=== PATIENT | male | born 1985 | race Caucasian/White ===

== ENCOUNTER 2024-05-20 10:58 | Emergency (ER) | payer MEDICAID, SELFPAY ==
--- NOTE | ~2024-05-20 | XR_ITS ---
EXAMINATION: XR TIBIA AND FIBULA, RIGHT CLINICAL INFORMATION: Pain after fall COMPARISON: None available. TECHNIQUE: AP and lateral views of the right tibia and fibula were obtained. FINDINGS: The bones and soft tissues are normal. No fracture. No osseous lesions. XR/XR tibia fibula RT 2V IMPRESSION: Normal right tibia and fibula. Electronically signed by: Jose Whitley MD 05/20/2024 12:53 PM EST
--- NOTE | ~2024-05-20 | XR_ITS ---
EXAMINATION: XR ANKLE, RIGHT CLINICAL INFORMATION: Pain COMPARISON: None available. TECHNIQUE: AP, lateral, and mortise views of the right ankle. FINDINGS: Ankle mortise is well-maintained. There is small osseous fragment adjacent to the medial malleolus associated with soft tissue swelling but described on images from 2007, direct visualization is not available and most likely remote fracture of indeterminate age. Mild soft tissue swelling seen laterally as well. XR/XR ankle RT 2V IMPRESSION: No acute fracture seen. Remote fracture at the medial malleolus, unfused and soft tissue edema Electronically signed by: Jose Whitley MD 05/20/2024 12:55 PM EST
--- NOTE | ~2024-05-20 | US_ITS ---
EXAMINATION: US TRIPLEX LOWER EXTREMITY, RIGHT CLINICAL INFORMATION: Right leg pain and swelling COMPARISON: None available. TECHNIQUE: Color-flow triplex imaging with spectral analysis and compression Doppler were performed on the right lower extremity. FINDINGS: Respiratory variation, normal compression and augmented flow are noted throughout the right lower extremity. The visualized common femoral vein, superficial femoral vein, profunda femoral vein, popliteal vein and midcalf peroneal and posterior tibial venous segments show no evidence of deep venous thrombosis. There is a 3.7 x 1.6 x 1.4 cm right popliteal fossa cyst. Prominent right inguinal lymph nodes are evident, presumably reactive. US/US venous duplex LE RT IMPRESSION: 1. No evidence of deep vein thrombosis in the right femoral popliteal system. 2. Right popliteal fossa 3.7 cm Saucedo's cyst. Electronically signed by: Mj Saldivar MD 05/20/2024 01:38 PM [facility]
--- NOTE | ~2024-05-20 | XR_ITS ---
EXAMINATION: XR KNEE, RIGHT CLINICAL INFORMATION: Pain and swelling COMPARISON: None available. TECHNIQUE: Four views of the right knee. FINDINGS: There is no fracture seen. There is mild narrowing of medial compartment of left knee joint with marginal spurring. There is no joint effusion XR/XR knee RT 2V IMPRESSION: Large joint effusion and mild degenerative changes Electronically signed by: Jose Whitley MD 05/20/2024 12:57 PM EST
[2024-05-20 11:24] VITALS: BP 162/97; PULSE 89; RESP 16; TEMP 36.5; O2SAT 100; BMI 31.3
--- NOTE | 2024-05-20 11:30 | ED.GENADULT ---
HPI - General Adult General Chief complaint: Extremity Problem Stated complaint: pain in r leg and ankle Time Seen by Provider: 05/20/24 12:50 Source: patient, RN notes reviewed and old records reviewed Mode of arrival: ambulatory History of Present Illness ED Provider: Jazmin Almonte PA-C HPI narrative: 38-year-old male with no significant past medical history presenting to the ED complaining of acute on chronicright knee and ankle pain /swelling x 1 year worsening over the past week. Admits experiences intermittent joint swelling / pain, believes he has not gout, however denies official diagnosis. Reports exquisite pain. Denies known injury, trauma, fall, erythema, numbness / tingling, SOB Related Data Previous Rx's ?Medication ?Instructions ?Recorded acetaminophen 500 mg tablet 500 mg PO Q6H PRN fever or pain 05/20/24 (Tylenol Extra Strength) #14 tabs naproxen 500 mg tablet 500 mg PO BID PRN pain 10 days #20 05/20/24 tabs prednisone 20 mg tablet 40 mg (2 x 20 mg) PO DAILY 5 days 05/20/24 #10 tabs Allergies Allergy/AdvReac Type Severity Reaction Status Date / Time No Known Allergies Allergy Unverified 05/20/24 11:26 Review of Systems Review of Systems: Yes all other systems are reviewed and are negative Constitutional: Constitutional: Reports as per [facility] Past Medical History Attestation statement: The following information was validated with the patient. Source: old records reviewed Social History Social History Advance Directives: No Advance Directives Information Provided: Yes Physical Exam ED Vital Signs: Vital Signs - 24 hr 05/20/24 11:24 05/20/24 14:41 05/20/24 15:27 Temperature 97.7 F 97.5 F 97.5 F Pulse Rate 89 81 81 Respiratory Rate 16 15 15 Blood Pressure 162/97 H 166/92 H 166/92 H Pulse Oximetry 100 100 100 Oxygen Delivery Method Room Air Room Air Room Air BMI result Body Mass Index 31.3 Const General: cooperative, healthy appearing and no acute distress Orientation/consciousness: patient oriented x3 Limitations: no limitations HENMT Head: Yes normal to inspection and Yes atraumatic Ears: hearing grossly normal bilaterally General nose exam: Normal external nose present Face and sinus: Yes normal facial exam Eyes General: appearance normal, both eyes and all related structures EOM: EOMs intact bilaterally Neck Neck: Yes normal visual inspection and Yes no meningeal signs Resp Effort & Inspection: normal respiratory effort and no respiratory distress Cardio Rate: regular rate Skin Rashes: no rashes Wounds: no wounds Neuro General: patient oriented x3, tone normal and no meningeal signs Cranial nerves: Yes CN's II-XII intact bilaterally Gait exam (Neuro): Normal gait present Extrem Other: right knee with noted swelling. No erythema. Diffusely tender to palpation. Limited ROM secondary to pain. Right ankle with appreciable swelling. Tender to palpation. Neurovascularly intact distally. No erythema /warmth no crepitus Course Course Course Narrative: RME: 38-year-old male presents ED for new onset of right knee right leg right ankle swelling with pain. Patient states he has gout although no history of gout. Exam positive for right knee leg ankle swelling. Will do labs, ultrasound, x-rays. -1426-- no leukocytosis. Uric acid level mildly elevated to 7.7 US venous duplex LE RT IMPRESSION: 1. No evidence of deep vein thrombosis in the right femoral popliteal system. 2. Right popliteal fossa 3.7 cm Saucedo's cyst. XR ankle RT 2V IMPRESSION: No acute fracture seen. Remote fracture at the medial malleolus, unfused and soft tissue edema XR tibia fibula RT 2V IMPRESSION: Normal right tibia and fibula. XR knee RT 2V IMPRESSION: Large joint effusion and mild degenerative changes > Doug wrap applied to knee. Aircast applied to ankle. Recommended PCP follow-up. Discharge patient home with p.o. prednisone. Results discussed with patient including worrisome signs and symptoms and strict return precautions, and when to return to the emergency department. They verbalized understanding and feel safe for discharge at this time. Procedures Orthopedic Splinting/Casting Injury #1: Side: right Lower Extremity Injury Location: knee and ankle Lower Extremity Immobilizer: AirCast and Doug wrap Medical Decision Making Medical Decision Making MDM Narrative: 38-year-old male with no significant past medical history presenting to the ED complaining of acute on chronicright knee and ankle pain /swelling x 1 year worsening over the past week. on exam vital signs stable, NAD, nontoxic appearing, physical exam as noted above. Concern for fractures vs sprain vs arthritic flare vs ? gout. No evidence of septic joint / arthritis. Rule out DVT. Low suspicion for PE plan: Labs, x-ray, ultrasound ordered in triage Please refer to course for remaining clinical decision making, interpretation of labs/imaging results, and discussions with consultants and/or family members. Differential Diagnosis Differential Diagnoses: The differential diagnosis associated with the presentation includes As above Admission/Observation Consideration of admission/observation: Escalation of care including admission/observation considered Lab Data MDM Lab Attestation statement: I reviewed the patient's lab results. 05/20/24 11:36 05/20/24 11:36 Labs: Lab Results 05/20/24 Range/Units 11:36 WBC 8.0 (4.8-10.8) X10*3/uL RBC 4.11 L (4.60-5.80) X10*6/uL Hgb 11.5 L (14.0-18.0) g/dl Hct 36.0 L (42.0-52.0) % MCV 87.6 (80.0-98.0) fL MCH 28.0 (27.0-33.0) pg MCHC 31.9 (31.0-36.0) g/dl RDW 14.7 (11.0-16.0) % Plt Count 431 H (160-400) X10*3/uL MPV 8.3 L (9.4-12.4) fL Immature Gran % (Auto) 0.2 (0.0-0.4) % Neut % (Auto) 71.0 (45-73) % Lymph % (Auto) 21.3 (20-40) % Nelson % (Auto) 6.6 (2-11) % Eos % (Auto) 0.7 (0-4) % Baso % (Auto) 0.2 (0-2) % Lymph # (Auto) 1.7 (1.2-4.9) X10*3/uL Nelson # (Auto) 0.5 (0.1-1.2) X10*3/uL Eos # (Auto) 0.1 (0.0-0.4) X10*3/uL Baso # (Auto) 0.0 (0.0-0.2) X10*3/uL Abs Immat Gran (auto) 0.02 (0.00-0.03) X10*3/uL Absolute Neuts (auto) 5.7 (2.0-8.3) x10*3/uL Absolute Nucleated RBC 0.000 (0.0-0.012) X10*3/uL Nucleated RBC % (auto) 0.0 (0.0-0.2) /100WBC PT 12.4 (10.9-12.4) SEC INR 1.1 (0.9-1.1) APTT 35.7 (26.0-36.8) SEC Sodium 141 (135-145) mmol/L Potassium 4.2 (3.3-5.1) mmol/L Chloride 103 (96-108) mmol/L Carbon Dioxide 29 (22-29) mmol/L Anion Gap 13 (12-20) BUN 10 (9-16) mg/dL Creatinine 1.01 (0.5-1.4) mg/dL Estim Creat Clear Calc 108.6 Estimated GFR > 60 Random Glucose 95 (60-115) mg/dL Uric Acid 7.7 H (3.4-7.0) mg/dL Calcium 10.3 H (8.4-10.2) mg/dL Total Bilirubin 0.4 (0.0-1.0) mg/dL AST 19 (5-37) U/L ALT 18 (0-40) U/L Alkaline Phosphatase 97 (39-117) U/L Total Protein 8.2 H (6.5-8.0) g/dL Albumin 4.0 (3.5-5.0) g/dL Independent Interpretation I performed an independent interpretation of an: Plain X-Ray and Ultrasound Radiology Impression Discussion of test interpretation with radiology: I have reviewed the radiologist's reading. External Record Review External record reviewed: Inpatient record, Office record, Outpatient record, Prior outpatient labs, Prior outpatient radiology, Primary care record and Outside ED record Tests considered The following testing was considered but not selected: As above Prescription Management I considered prescription management with: Pain Medication Chronic Conditions Patient?s care impacted by: Other Social Determinants Patient?s care significantly limited by Social Determinants of Health including: Low income, Problems related to primary support group and Other Social Determinant of Health Discharge Plan Discharge Clinical Impression: Joint swelling, Elevated uric acid in blood Patient Disposition: Home, Self-Care Instructions: Low Purine Diet (ED) Additional Instructions: your x-ray shows a large joint effusion. It also shows an old fracture to your right ankle wear Doug wrap for compression and stability Wear Aircast for compression and comfort Prednisone as a steroid which will help with swelling/ pain in addition naproxen as an anti-inflammatory/ pain medicine, take with food Please follow-up with your doctor as well as Rheumatology and Orthopedics If symptoms persist or worsen, pain becomes unbearable, swelling worsens, area becomes red, you have fever return to the ED immediately Prescriptions: New prednisone 20 mg tablet 40 mg PO DAILY 5 Days Qty: 10 0RF acetaminophen [Tylenol Extra Strength] 500 mg tablet 500 mg PO Q6H PRN (Reason: fever or pain) Qty: 14 0RF naproxen 500 mg tablet 500 mg PO BID PRN (Reason: pain) 10 Days Qty: 20 0RF Referrals: [facility] [place]Provider Group] [facility] [Provider Group] Interventions: ED Discharge Assessment Last Done: 05/20/24 15:27 Discharge Date/Time: 05/20/24 15:28 Print Language: Kiswahili
[2024-05-20 11:41] LABS: MANUAL DIFF FLAG NO
[2024-05-20 11:42] LABS: Basophils Percent Auto 0.2 % (0-2); Eosinophils Absolute Auto 0.1 X10*3/uL (0.0-0.4); Eosinophils Percent Auto 0.7 % (0-4); Hemoglobin 11.5 g/dl (14.0-18.0); Imm Gran Abs Auto 0.02 X10*3/uL (0.00-0.03); Imm Gran Pct Auto 0.2 % (0.0-0.4); Lymphocytes Absolute Auto 1.7 X10*3/uL (1.2-4.9); Lymphocytes Percent Auto 21.3 % (20-40); Mean Corpuscular HGB Conc 31.9 g/dl (31.0-36.0); Mean Corpuscular Volume 87.6 fL (80.0-98.0); Mean Platelet Volume 8.3 fL (9.4-12.4); Monocytes Absolute Auto 0.5 X10*3/uL (0.1-1.2); Monocytes Percent Auto 6.6 % (2-11); Neutrophils Absolute Auto 5.7 x10*3/uL (2.0-8.3); Platelet Count 431 X10*3/uL (160-400); Red Blood Count 4.11 X10*6/uL (4.60-5.80); Red Cell Distribution Width 14.7 % (11.0-16.0)
[2024-05-20 11:47] LABS: INTERNATIONAL NORM RATIO 1.1 (0.9-1.1); Prothrombin Time 12.4 SEC (10.9-12.4)
[2024-05-20 11:50] LABS: Partial Thromboplastin Time 35.7 SEC (26.0-36.8)
[2024-05-20 12:11] LABS: Alanine Aminotransferase 18 U/L (0-40); Alkaline Phosphatase 97 U/L (39-117); Anion Gap 13 (12-20); Aspartate Amino Transferase 19 U/L (5-37); Bilirubin Total 0.4 mg/dL (0.0-1.0); Blood Urea Nitrogen 10 mg/dL (9-16); Calcium 10.3 mg/dL (8.4-10.2); Carbon Dioxide 29 mmol/L (22-29); Chloride 103 mmol/L (96-108); Creatinine Clr Calc Pharmacy 108.6; Estimated Glomerular Filt Rate > 60; Glucose Random 95 mg/dL (60-115); Potassium 4.2 mmol/L (3.3-5.1); Sodium 141 mmol/L (135-145); Total Protein 8.2 g/dL (6.5-8.0); Uric Acid 7.7 mg/dL (3.4-7.0)
[2024-05-20 14:41] VITALS: BP 166/92; PULSE 81; RESP 15; TEMP 36.4; O2SAT 100
[2024-05-20 15:27] VITALS: BP 166/92; PULSE 81; RESP 15; TEMP 36.4; O2SAT 100
== END 2024-05-20 15:28 | disposition home or self-care (01) ==
PROVIDERS: Physician Assistant; Emergency Provider Student in an Organized Health Care Education/Training Program
DX: M79.89 Other specified soft tissue disorders (principal); M25.561 Pain in right knee; E79.0 Hyperuricemia without signs of inflammatory arthritis and tophaceous disease
CPT/HCPCS: 36415; 73560; 73590; 73600; 80053; 84550; 85025; 85610; 85730; 93971; 99282; 99284

== ENCOUNTER 2025-06-08 13:41 | Emergency (ER) | payer MEDICAID, SELFPAY ==
[2025-06-08 13:58] VITALS: BP 149/102; PULSE 96; RESP 16; TEMP 36.6; O2SAT 98; BMI 27.4
--- NOTE | 2025-06-08 14:01 | ED_ITS ---
HPI - General Adult General Chief complaint: Extremity Injury, Lower Stated complaint: Knee Leg Pain Time Seen by Provider: 06/08/25 14:04 Source: patient Mode of arrival: wheelchair Limitations: no limitations History of Present Illness ED Provider: Charmaine Stevenson PA-C HPI narrative: Patient is a 39 year old assigned male at with a history of gout presenting to the emergency department today with right hand, right knee, and right great toe pain. Patient states that over the last few days he has had right hand, right knee, and right great toe pain that feels like gout to him. Patient states that he had a similar episode this time last year and the medication he was given then, worked. Patient denies any other complaints at this time. Onset (ago): day(s) Relieving factors: none Associated symptoms: denies other symptoms Treatments prior to arrival: none Related Data Previous Rx's ?Medication ?Instructions ?Recorded acetaminophen 500 mg tablet 500 mg PO Q6H PRN fever or pain 05/20/24 (Tylenol Extra Strength) #14 tabs naproxen 500 mg tablet 500 mg PO BID PRN pain 10 da ys #20 05/20/24 tabs prednisone 20 mg tablet 40 mg (2 x 20 mg) PO DAILY 5 days 05/20/24 #10 tabs naproxen 500 mg tablet 500 mg PO BID 7 days #14 tab s 06/08/25 prednisone 20 mg tablet 40 mg (2 x 20 mg) PO DAILY C OPD 06/08/25 exacerbation 5 days #10 tabs Allergies Allergy/AdvReac Type Severity Reaction Status Date / Time No Known Allergies Allergy Verified 06/08/25 13:59 Review of Systems Constitutional: Constitutional: Reports as per HPI Eyes: Eyes: Reports as per HPI ENT: Reports as per HPI Cardiovascular: Cardiovascular: Reports as per HPI Respiratory: Respiratory: Reports as per HPI Gastrointestinal: Gastrointestinal: Reports as per HPI Genitourinary: Genitourinary: Reports as per HPI Musculoskeletal: Musculoskeletal: Reports as per HPI Integumentary/Breasts: Skin/Breast: Reports as per HPI Neurologic: Reports as per HPI Psychiatric: Psychiatric: Reports as per HPI Endocrine: Endocrine: Reports as per HPI Hematologic/Lymphatic: Hematologic/Lymphatic: Reports as per HPI Allergic/Immunologic: Allergic/Immunologic: Reports as per HPI [facility] Past Medical History Attestation statement: The following information was validated with the patient. Source: old records reviewed and nursing notes reviewed Social History Social History Advance Directives: No Advance Directives Information Provided: Yes Physical Exam ED Vital Signs: Vital Signs - 24 hr 06/08/25 13:58 Temperature 97.9 F Pulse Rate 96 Respiratory Rate 16 Blood Pressure 149/102 H Pulse Oximetry 98 Oxygen Delivery Method Room Air BMI result Body Mass Index 27.4 Const General: cooperative, no acute distress, alert and awake Nutritional Appearance: well nourished Orientation/consciousness: patient oriented x3 HENMT Head: Yes normal to inspection and Yes atraumatic Ears: hearing grossly normal bilaterally and external ears normal General nose exam: Normal external nose present, no nasal discharge noted and no epistaxis Face and sinus: Yes normal facial exam, No abrasion and No laceration Mouth: Normal oral and palatal mucosa present, no drooling and no muffled voice Eyes General: appearance normal, both eyes and all related structures Periorbital: periorbital findings normal Eyelids: Yes eyelids normal Conjunctivae: conjunctivae normal Pupils: Equal, round and reactive pupils present EOM: EOMs intact bilaterally Neck Neck: Yes normal visual inspection and Yes full ROM Resp Effort & Inspection: normal respiratory effort and able to speak in complete sentences Neuro General: patient oriented x3, moves all extremities and CN's II-XI intact bilaterally Cranial nerves: Yes Equal, round and reactive pupils present Cognition (Neuro): normal cognition Extrem General: Yes normal to inspection, Yes full ROM and Yes capillary refill normal Psych Appearance: grossly normal Mental Status: mental status grossly normal Affect: normal affect Attitude: cooperative Thought process: Normal thought process present Thought content: Normal thought content present Insight: Good insight present (Psych) Medical Decision Making Medical Decision Making MDM Narrative: Patient is a 39 year old assigned male at with a history of gout presenting to the emergency department today with right hand, right knee, and right great toe pain. Patient's physical exam was as noted in the physical exam portion of this note. Patient's examination is consistent with gout and showed no evidence of infection / cellulitis. I explained my physical exam findings to the patient. I answered all questions asked by the patient. I stressed the importance of the patient taking his medication as directed (either prescribed or as the over the counter packaging recommends). I stressed the importance of the patient following up with his primary care provider. I stressed the importance of the patient returning to the emergency department immediately if his symptoms were to worsen or if he were to develop any dizziness, shortness of breath, difficulty breathing, chest pain, blurry vision, loss of vision, nausea, vomiting, abdominal pain, fever, chills, back pain, or any other complaints. Patient verbalized agreement and understanding with this treatment plan and discharge. Differential Diagnosis Differential Diagnoses: The differential diagnosis associated with the presentation includes Gout flare Gout attack Admission/Observation Consideration of admission/observation: Escalation of care including admission/observation considered Patient would have been admitted to the hospital had his clinical presentation warranted hospital admission. Tests considered The following testing was considered but not selected: I considered obtaining an x-ray of the right hand, right knee, and right foot however - the patient has not sustained any trauma and has no physical exam findings warranting imaging. Prescription Management I considered prescription management with: Pain Medication (patient prescribed pain medication for his gout flare) Discharge Plan Discharge Clinical Impression: Gout Patient Disposition: Home, Self-Care Instructions: Low Purine Diet (ED), Gout (ED) Additional Instructions: Take your medication as prescribed. IF you are prescribed home medications and/or you are taking over the counter medications at home - it is very important you continue to do so as prescribed / directed unless told otherwise by a healthcare provider. Follow up with your primary care provider. Do your best to stay well hydrated and rest. Return to the emergency department immediately if your symptoms worsen or if you develop any numbness, tingling, dizziness, shortness of breath, difficulty breathing, chest pain, blurry vision, loss of vision, nausea, vomiting, ab dominal pain, fever, chills, back pain, or any other complaints. If you do not have a primary care provider - call any of the below numbers to establish and follow up with a primary care provider. [facility] ([place]) [phone] [place] [address], [address] [facility] ([address]) [phone] [address] [facility], [address] [place], [address] [facility] ([address]) [phone] [place] [address], [address] [place], [address] [facility] ([place]) [phone] [place] [address], [address] [place], [address] [facility] Family Medicine [phone] [place] [address], [address] Please see the information below about our Patient Portal. If you are not yet enrolled in the [facility] Patient Portal, you will receive an enrollment email invitation following your visit to any [facility] setting. You may also self-enroll in the Patient Portal by visiting our website: [email or web address] The following information is required to access the Patient Portal: - Your [facility] Medical Record Number - Your personal home email address (must match what is in your electronic medical record, Registration staff can assist with this) - Name - Date of Capabilities of the Patient Portal: - Message some providers - View upcoming appointments - Access your health summary, medical history, and visit history - View current conditions and allergies - View procedure and lab results - View your medications, including guidelines, side effects, and precautions - Complete pre-appointment questionnaires requested by your provider - Ready summary reports of your office visits and procedures To access the Patient Portal Mobile [employer], follow these directions: - Search [employer] in the [employer] Store or [employer] Store - Download the [employer] - Search for [facility] - Enter your login/password Prescriptions: New prednisone 20 mg tablet 40 mg PO DAILY 5 Days Qty: 10 0RF naproxen 500 mg tablet 500 mg PO BID 7 Days Qty: 14 0RF No Action prednisone 20 mg tablet 40 mg PO DAILY 5 Days Qty: 10 0RF acetaminophen [Tylenol Extra Strength] 500 mg tablet 500 mg PO Q6H PRN (Reason: fever or pain) Qty: 14 0RF naproxen 500 mg tablet 500 mg PO BID PRN (Reason: pain) 10 Days Qty: 20 0RF Discharge Date/Time: 06/08/25 14:45 Print Language: Kiswahili
--- OUTSIDE RECORDS SUMMARY | 2025-06-08 14:20 | XMS_ITS | Clinical Summary ---
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 Role Phone Unavailable Primary Care Provider Unavailabl e Social History Tobacco Use Types Packs/Day Years Used Date Smoking Tobacco: Never Assessed Sex and Gender Information Value Date Recorded Sex Assigned at Not on file Legal Sex Male 11:29 AM EST Gender Identity Not on file Sexual Orientation Not on file Plan of Treatment Health Maintenance Due Date Last Done Comments Depression Screening 1987 HIV Screening 1987 Lipid Panel 1987 SDOH Screening 1987 Disability Screening 1987 Alcohol/Substance Use Screening 1999 Tobacco Screening 1999 Family Planning (PISQ) 09/16/2002 HPV Vaccines (1 - Male 3-dos e series) 09/16/2002 Hepatitis C Screening 09/16/2005 DTaP/Tdap/Td Vaccines (1 - Tdap) 09/16/2006 Hepatitis B Vaccines (1 of 3 - 19+ 3-dose series) 09/16/2006 COVID-19 Vaccine (1 - 2024-2 6 season) 2025 Influenza Vaccine (#1) 2025 Zoster Vaccines (1 of 2) 09/16/2037 RSV Patients and Pa tients Aged 60 years or older (1 - 1-dose 75+ series) 09/16/2062 HIB Vaccines Aged Out No longer eligi ble based on patient's age to complete this topic Hepatitis A Vaccines Aged Out No long er eligible based on patient's age to complete this topic IPV Vaccines Aged Out No longer eligi ble based on patient's age to complete this topic Meningococcal B Vaccine Aged Out No l onger eligible based on patient's age to complete this topic Meningococcal Vaccine Aged Out No darrian fidencio eligible based on patient's age to complete this topic Pneumococcal Vaccine: Pediat rics (0 to 5 Years) and At-Risk Patients (6 to 49) Years Aged Out No longer eligible b ased on patient's age to complete this topic RSV under 20 months Aged Out No longe r eligible based on patient's age to complete this topic Rotavirus Vaccines Aged Out No longer eligible based on patient's age to complete this topic
== END 2025-06-08 14:45 | disposition home or self-care (01) ==
LOC: HO.ED 14:17
PROVIDERS: Emergency Provider Emergency Medicine Emergency Medical Services
DX: M10.9 Gout, unspecified (principal); M25.561 Pain in right knee; M79.641 Pain in right hand; M79.671 Pain in right foot
CPT/HCPCS: 99281; 99282